=== PATIENT | male | born 1975 | race Two or more races ===

== ENCOUNTER → 2025-02-19 | Emergency (ER) | payer OTHER ==
[~2025-02-19] VITALS: Ht 177.8 cm; Wt 83.5 kg
[~2025-02-19] MED LIST: DICLOFENAC SODI50 MG PO; KETOROLAC TROMETHAMINE 30 MG VIAL IM ONE
== END | disposition home or self-care (01) ==
LOC: ER 13:18
DX: S50.11XA Contusion of right forearm, initial encounter (principal); S60.211A Contusion of right wrist, initial encounter; S60.221A Contusion of right hand, initial encounter; W18.39XA Other fall on same level, initial encounter; Y93.89 Activity, other specified; Y92.89 Other specified places as the place of occurrence of the external cause; Y99.9 Unspecified external cause status